=== PATIENT | female | born 2000 | race African-American/Black ===

== ENCOUNTER → 2023-05-02 | Emergency (ER) | payer OTHER ==
[~2023-05-02] MED LIST: ACETAMINOPHEN 1000 MG/100 ML BAG IVPB ONE; ACETAMINOPHEN INJECTION 100 ML IVPB ONE; morphine CARPU-JECT 4 MG/1 ML DISP.SYRIN IVPUSH ONE; morphine SULFATE 4 MG/ML VIAL ONE
[2023-05-02 18:16] VITALS: BMI 27.8
[2023-05-02 20:04] LABS: URINE APPEARANCE CLEAR; URINE BILIRUBIN NEGATIVE (NEGATIVE); URINE COLOR YELLOW; URINE GLUCOSE (UA) NEGATIVE (NEGATIVE); URINE KETONE TRACE (NEGATIVE); URINE LEUK ESTERASE NEGATIVE (NEGATIVE); URINE NITRITE NEGATIVE (NEGATIVE); URINE PROTEIN TRACE (NEGATIVE)
[2023-05-02 20:05] LABS: EOS % 0.3 % (0-4.5); HEMOGLOBIN 12.2 GM/dL (10.7-15.3)
[2023-05-02 20:08] LABS: VENOUS PCO2 45.3 mmHg (38-52); VENOUS PH 7.325 (7.310-7.410)
[2023-05-02 20:10] LABS: INR 1.1 (0.83-1.09); PROTHROMBIN TIME (PATIENT) 12.8 SEC (9.7-13.0)
[2023-05-02 20:13] LABS: ACTIVATED PTT 29.1 SECONDS (25.2-36.5)
[2023-05-02 20:29] VITALS: TEMP 98.2
[2023-05-02 20:35] LABS: BASO % 0.4 % (0-2.0); HEMATOCRIT 36.6 % (32.4-45.2); LYMPH % 26.4 % (8-40); MCH 28.8 pg (25.7-33.7); MCHC 33.3 g/dl (32.0-36.0); MEAN CELL VOLUME 86.5 fl (80-96); MEAN PLT VOLUME 8.3 fl (7.5-11.1); MONO % 8.8 % (3.8-10.2); NEUT % 64.1 % (42.8-82.8); PLATELET COUNT 282 10^3/uL (134-434); RBC 4.23 M/mm3 (3.60-5.2); RDW 13.7 % (11.6-15.6); WHITE BLOOD COUNT 12.1 K/mm3 (4.0-10.0)
[2023-05-02 20:38] LABS: POTASSIUM 3.8 mmol/L (3.5-5.1)
[2023-05-02 20:41] LABS: ALBUMIN 3.6 g/dl (3.4-5.0); BLOOD UREA NITROGEN 9.9 mg/dL (7-18); CALCIUM 8.3 mg/dL (8.5-10.1)
[2023-05-02 20:44] LABS: CREATININE 0.7 mg/dL (0.55-1.3)
[2023-05-02 20:46] LABS: BILIRUBIN,TOTAL 0.4 mg/dL (0.2-1); TOT PROT 7.2 g/dl (6.4-8.2)
[2023-05-02 23:22] VITALS: BP 102/65; PULSE 60; RESP 11
== END | disposition home or self-care (01) ==
LOC: JER 17:54
PROC: 3E033NZ Introduction of Analgesics, Hypnotics, Sedatives into Peripheral Vein, Percutaneous Approach (ICD-10-PCS; principal; 2023-05-02)
PROC: 3E033GC Introduction of Other Therapeutic Substance into Peripheral Vein, Percutaneous Approach (ICD-10-PCS; 2023-05-02)
DX: S50.311A Abrasion of right elbow, initial encounter (principal); S80.811A Abrasion, right lower leg, initial encounter; R10.12 Left upper quadrant pain; V03.19XA Pedestrian with other conveyance injured in collision with car, pick-up truck or van in traffic accident, initial encounter; Y92.410 Unspecified street and highway as the place of occurrence of the external cause
CPT/HCPCS: 36415; 71045-TC-FY; 72170-TC-FY; 73130-TC-LT-FY; 73590-TC-LT-FY; 74177-TC; 80053; 81003; 82803; 83605; 83690; 84703; 85025; 85610; 85730; 99291